=== PATIENT | female | born 1975 | race Caucasian/White ===

== ENCOUNTER 2018-12-13 19:25 | Emergency (ER) | payer MEDICAID ==
[2018-12-13 19:45] VITALS: BP 143/66
[2018-12-13 20:03] LABS: BILIRUBIN,URINE NEGATIVE (NEGATIVE); GLUCOSE, URINE (UA) NEGATIVE (NEGATIVE); KETONES,URINE (UA) NEGATIVE (NEGATIVE); LEUKOCYTE ESTERASE, URINE SMALL (NEGATIVE); NITRITE,URINE NEGATIVE (NEGATIVE); OCCULT BLOOD,URINE LARGE (NEGATIVE); PH,URINE 5.5 PH (5.0-7.5); PROTEIN,URINE 100 mg/dL (NEGATIVE); UROBILINOGEN,URINE 0.2 (NORMAL) E.U./dL (NORMAL)
[2018-12-13 20:06] LABS: CLARITY,URINE BLOODY (CLEAR)
[2018-12-13 20:07] LABS: HCG UR QUAL NEGATIVE
[2018-12-13 20:14] LABS: RBC,URINE TNTC /HPF (0-5); SQUAMOUS EPITHELIAL CELL,UR FEW Squamous (<= Few)
[2018-12-13 20:15] LABS: BACTERIA,URINE None Seen /HPF (None Seen)
--- NOTE | 2018-12-13 20:55 | ED Physician Documentation ---
History of Present Illness - Stated complaint Stated Complaint: FEMALE - Chief complaint Chief Complaint: UTI - History of Present Illness Timing: Prior to arrival - Additonal information Additional information: Patient is a 43-year-old female presenting with concerns for possible UTI since earlier this afternoon. Patient has had previous UTIs and reports similar symptoms, particularly heaviness/pressure sensation, dysuria, hematuria, and mild suprapubic abdominal discomfort. Patient also believes she has had the chills, but denies actual fever, nausea, vomiting, back pain, or other vaginal complaints. Patient's last menstrual period 1 week ago.No particular worsening or improving factors noted. Review of Systems Constitutional: reports: Chills. denies: Fever PD PAST MEDICAL HISTORY - Past Medical History Past Medical History: Yes Cardiovascular: Valve disorder Endocrine/Autoimmune: HyPOthyroidism HEENT: Glaucoma Other Past Medical History: Chronic Trung Garrison - Past Surgical History Past Surgical History: Yes Ortho: Other Cardiovascular: Other HEENT: Other - Present Medications Home Medications: Ambulatory Orders Medication Instructions Recorded Confirmed Levothyroxine Sodium [Synthroid] 1 tab PO DAILY 12/13/18 12/13/18 Nitrofurantoin Monohyd/M-Cryst 100 mg PO BID #10 capsule 12/13/18 [Macrobid 100 mg Capsule] Phenazopyridine HCl [Pyridium] 200 mg PO TID PRN #6 tablet 12/13/18 Timolol 0.5% Ophth Drops [Timoptic 1 drops EACHEYE DAILY 12/13/18 12/13/18 0.5% Ophth Drops] - Allergies Allergies/Adverse Reactions: Allergies Allergy/AdvReac Type Severity Reaction Status Date / Time No Known Drug Allergies Allergy Verified 12/13/18 19:44 - Social History Does the pt smoke?: Yes Smoking Status: Current every day smoker Does the pt drink ETOH?: Yes ETOH Use: Wine Does the pt have substance abuse?: No - Immunizations Immunizations are current?: Yes - POLST Patient has POLST: No PD ED PE NORMAL - General General: Alert and oriented X 3, No acute distress, Well developed/nourished - Cardiac Cardiac: RRR. No: No murmur (Holosystolic murmur present, patient reports chronic) - Respiratory Respiratory: No respiratory distress, Clear bilaterally - Abdomen Abdomen: Normal bowel sounds, Soft, Non tender (No significant suprapubic tenderness noted), Non distended - Back Back: No CVA TTP - Derm Derm: Normal color, Warm and dry, No rash - Extremities Extremities: No deformity - Neuro Neuro: Alert and oriented X 3, No motor deficit, No sensory deficit - Psych Psych: Normal mood, Normal affect Results - Vitals Vitals: Vital Signs - 24 hr 12/13/18 19:38 Temperature 37.8 C H Heart Rate 87 Respiratory 16 Rate Blood Pressure 143/66 H O2 Saturation 100 Oxygen O2 Source Room air - Labs Labs: Laboratory Tests 12/13/18 19:35 Urine Color RED/BLOODY Urine Clarity BLOODY Urine pH 5.5 Ur Specific [place] 1.015 Urine Protein 100 H Urine Glucose (UA) NEGATIVE Urine Ketones NEGATIVE Urine Occult Blood LARGE H Urine Nitrite NEGATIVE Urine Bilirubin NEGATIVE Urine Urobilinogen 0.2 (NORMAL) Ur Leukocyte Esterase SMALL H Urine RBC TNTC H Urine WBC 0-3 Ur Squamous Epith Cells FEW Squamous Urine Bacteria None Seen Ur Microscopic Review INDICATED Urine Culture Comments INDICATED Urine HCG, Qual NEGATIVE PD MEDICAL DECISION MAKING - ED course Complexity details: reviewed results, considered differential, d/w patient ED course: Most concerning for hemorrhagic cystitis or urinary tract infection given patient's history of such, similar symptoms today, physical exam findings, and workup. Do not have high suspicion for pyelonephritis or other intra-abdominal pathology such as diverticulitis, AAA, small bowel obstruction, appendicitis, gallbladder disease, or other pathology such as ovarian torsion or cyst, but considered. At this time, feel appropriate to discharge patient home with Pyridium and antibiotic, as well as discussed supportive cares, strict return precautions, and appropriate follow-up. Patient voiced understanding and is comfortable with discharge plan. Departure - Departure Disposition: 01 Home, Self Care Clinical Impression: Urinary tract infection Qualifiers: Urinary tract infection type: site unspecified Hematuria presence: with hematuria Qualified Code(s): N39.0 - Urinary tract infection, site not specified; R31.9 - Hematuria, unspecified Instructions: ED UTI Cystitis Female Follow-Up: your,doctor [Other] - Within 3 Days Prescriptions: Nitrofurantoin Monohyd/M-Cryst [Macrobid 100 mg Capsule] 100 mg PO BID #10 capsule Phenazopyridine HCl [Pyridium] 200 mg PO TID PRN #6 tablet PRN Reason: dysuria Comments: Please use antibiotic and Pyridium as instructed to help relieve urine infection and discomfort. Recommend hydration, healthy diet, and follow-up with your primary care physician next 2-3 days. Return to ED sooner if explains worsening symptoms or other concerns.
[2018-12-13] MEDS ORDERED: PHENAZOPYRIDINE 100 MG TABLET PO STA (22:14)
[2018-12-13] MEDS ORDERED: NITROFURANTOIN MACRO 100 MG CAPSULE PO STA (22:14)
== END 2018-12-13 21:19 | disposition home or self-care (01) ==
LOC: ED 19:25
DX: N39.0 Urinary tract infection, site not specified (principal); R31.9 Hematuria, unspecified; E03.9 Hypothyroidism, unspecified; F17.200 Nicotine dependence, unspecified, uncomplicated
CPT/HCPCS: 81001; 81025; 87086; 99283; A9270; 81003